=== PATIENT | male | born 1940 | race Caucasian/White ===

== ENCOUNTER → 2019-06-28 10:00 | Outpatient (REF) | payer MEDICARE, SELFPAY | LOC: ANHLAB 10:00 | PROVIDERS: PCP Family Medicine; Visit Provider Nurse Practitioner Family | DX: C44.529 Squamous cell carcinoma of skin of other part of trunk (principal) | CPT/HCPCS: 88305; 88331 ==

== ENCOUNTER 2019-06-29 11:08 | Outpatient (CLI) | payer MEDICARE, SELFPAY ==
--- NOTE | ~2019-06-29 | XR_ITS ---
EXAMINATION: XR chest 2V EXAM DATE: 06/29/2019 11:34 INDICATION: Shortness of breath, COPD. TECHNIQUE: Frontal and lateral projections of the chest obtained and reviewed. Comparison is made to prior examination from 01/20/2019. FINDINGS: The lungs are clear. There are no pleural effusions. The cardiomediastinal silhouette is within normal limits. There is no pneumothorax suspected. Patient has diffuse idiopathic skeletal h yperostosis (DISH). Spine stimulator leads at mid thoracic level. Left clavicular hardware. IMPRESSION: No acute cardiopulmonary findings. Reviewed, dictated and finalized at location B. APEUTIC RECREATION ASSISTANT
== END 2019-06-29 11:09 | disposition home or self-care (01) ==
PROVIDERS: PCP Family Medicine; Visit Provider Family Medicine
DX: R06.02 Shortness of breath (principal); J44.1 Chronic obstructive pulmonary disease with (acute) exacerbation
CPT/HCPCS: 71046

== ENCOUNTER 2019-10-24 12:31 | Outpatient (CLI) | payer MEDICARE, SELFPAY ==
--- NOTE | ~2019-10-24 | US_ITS ---
EXAMINATION: US soft tissue UE LT DATE: 10/24/2019 13:08 INDICATION: Left supraclavicular lump. TECHNIQUE: Multiple grayscale and Doppler ultrasound images of the left supraclavicular region were o btained. COMPARISON: Chest CT 08/17/2016 FINDINGS: In the left supraclavicular region, there is an ill-defined 21 x 9 mm hypoechoic subcutaneo us mass. IMPRESSION: 1. Ill-defined subcutaneous mass in the left supraclavicular region, most likely inflammation. Clinic al follow-up is recommended to confirm resolution and exclude malignancy. If the finding does not imp rove, biopsy is recommended. Reviewed, dictated and finalized at location A. IMPRESSION: 1. Ill-defined subcutaneous mass in the left supraclavicular region, most likel y inflammation. Clinical follow-up is recommended to confirm resolution and exc lude malignancy. If the finding does not improve, biopsy is recommended.
== END 2019-10-24 12:32 | disposition home or self-care (01) ==
PROVIDERS: PCP Family Medicine; Visit Provider Nurse Practitioner Family
DX: R22.32 Localized swelling, mass and lump, left upper limb (principal)
CPT/HCPCS: 76882

== ENCOUNTER 2019-11-03 07:52 | Outpatient (CLI) | payer MEDICARE, SELFPAY ==
--- NOTE | ~2019-11-03 | CT_ITS ---
EXAMINATION: CTA UE RT DATE: 11/03/2019 09:25 INDICATION: Right shoulder pain. TECHNIQUE: Computed tomographic angiography (CTA) of the upper chest and right upper extremity was pe rformed with 100 mL Omnipaque 350 intravenous contrast. Automated exposure control and iterative reed nstruction technique were employed. The dose-length product was 863 mGy-cm. COMPARISON: None. FINDINGS: The visualized thoracic aorta is normal in caliber with no dissection. Minimal calcified atherosclero tic plaque without hemodynamically significant stenosis at the aortic arch, at the origin of the left carotid artery and along the innominate artery. There is an early bifurcation of the right brachial artery at the mid humerus. There is runoff into the hand along both the right radial and ulnar arteri es with no evident atherosclerosis or stenosis in the right brachial, radial or ulnar arteries. There is runoff to near the wrist along the significantly smaller caliber anterior interosseous artery at the right forearm. The posterior interosseous artery is even more diminutive and is unable to be foll owed beyond the level of the proximal forearm. Visualized bilateral upper lung zones are clear. No pa thologically enlarged upper thoracic or axillary lymphadenopathy. Severe cervical spondylosis with an terior fusion at C4-C5. Mucosal thickening the left maxillary sinus. Postoperative change of prior ri ght ethmoidectomy. Changes of bilateral intraocular lens replacement. Small right mastoid effusion. P ostoperative changes at the right shoulder including distal right clavicle resection and acromioplast y. Mild glenohumeral osteoarthritis. IMPRESSION: 1. No hemodynamically significant stenosis along the right brachial, radial or ulnar arteries. 2. Severe cervical spondylosis. Reviewed, dictated and finalized at location A.
[2019-11-03 08:52] LABS: Estimated Glomerular Filt Rate 33
== END 2019-11-03 07:53 | disposition home or self-care (01) ==
LOC: ANHIMG 07:53
PROVIDERS: PCP Family Medicine; Visit Provider Orthopaedic Surgery
DX: M25.519 Pain in unspecified shoulder (principal); M47.812 Spondylosis without myelopathy or radiculopathy, cervical region
CPT/HCPCS: 36415; 73206; Q9967

== ENCOUNTER 2019-11-10 00:27 | Outpatient (CLI) | payer MEDICARE, SELFPAY ==
[2019-11-10 17:48] LABS: SARS-CoV-2 RNA PCR Negative
== END 2019-11-10 00:28 | disposition home or self-care (01) ==
LOC: ANHCOVIDDT 00:28
PROVIDERS: PCP Family Medicine; Visit Provider Surgery
DX: Z01.812 Encounter for preprocedural laboratory examination (principal); Z20.828 Contact with and (suspected) exposure to other viral communicable diseases
CPT/HCPCS: 87635; C9803; U0003

== ENCOUNTER 2019-11-10 09:15 | Outpatient (CLI) | payer MEDICARE, SELFPAY ==
[2019-11-10 10:11] LABS: INR 2.1
[2019-11-10 10:12] LABS: Partial Thromboplastin Time 31.4 SECONDS (22.3-36.8)
[2019-11-10 10:24] LABS: Blood Urea Nitrogen 63 mg/dL (9-20); Calcium 9.8 mg/dL (8.4-10.2); Carbon Dioxide 25 mmol/L (22-30); Chloride 101 mmol/L (98-107); Estimated Glomerular Filt Rate 29; Glucose 151 mg/dL (75-110); Sodium 133 mmol/L (137-145)
== END 2019-11-10 09:16 | disposition home or self-care (01) ==
LOC: ANHSURGERY 09:17
PROVIDERS: Anesthesiology; PCP Family Medicine; Visit Provider Surgery
DX: E13.9 Other specified diabetes mellitus without complications (principal); N28.9 Disorder of kidney and ureter, unspecified
CPT/HCPCS: 36415; 80048; 85610; 85730; 87635; C9803; U0003

== ENCOUNTER 2019-11-13 00:16 | Day surgery (SDC) | payer MEDICARE, SELFPAY ==
[2019-11-07 13:32] VITALS: BMI 32.3
[2019-11-13] MEDS: SODIUM CHLORIDE 0.9% IV 500 ML 30 ML IV CONT (10:45)
[2019-11-13 10:55] VITALS: BP 152/76; PULSE 82; RESP 20; TEMP 37.3; O2SAT 98
--- NOTE | 2019-11-13 11:02 | WPDANESEPPF ---
Anes - Initial Pre Proc Eval Procedure: Operation Date: 11/13/19 12:00 Proposed Procedures p Excision Of Left Shoulder Mass - Rusty Ly MD Date/Time: 11/13/19 11:02 Surgeon: Rusty Ly MD Pre Op Diagnosis: left shoulder mass Patient Data Age: 79 Gender: M Height: 1.85 m Weight: 110 kg Last Vital Signs Temp 37.3 C 11/13/19 10:55 Pulse 82 11/13/19 10:55 Resp 20 11/13/19 10:55 BP 152/76 H 11/13/19 10:55 Pulse Ox 98 11/13/19 10:55 Allergies Allergy/AdvReac Type Severity Reaction Status Date / Time irbesartan Allergy Unknown upset Verified 11/07/19 12:58 stomach Home Medications Medication Instructions Recorded Confirmed Type icosapent ethyl 1 gram capsule 2 gm PO BID 04/10/19 11/07/19 History multivitamin 1 tablet PO DAILY 04/10/19 11/07/19 History nebulizer and compressor #1 each 04/10/19 10/30/19 History omeprazole 40 mg capsule,delayed 40 mg PO DAILY 04/10/19 11/07/19 History release tadalafil 5 mg tablet 5 mg PO DAILY 04/10/19 11/07/19 History vitamin B complex 1 tablet PO DAILY 04/10/19 11/07/19 History lisinopril 10 mg tablet 10 mg PO DAILY 05/08/19 11/07/19 History metolazone 2.5 mg tablet 2.5 mg PO DAILY 05/08/19 11/07/19 History prednisone 10 mg tablet 10 mg PO DAILY 05/08/19 11/07/19 History Bacillus coagulans 10 billion cell 1 cell PO BID cap 06/28/19 11/07/19 History capsule,delayed release allopurinol 100 mg tablet 100 mg PO DAILY tablet 06/28/19 11/07/19 History bumetanide 2 mg tablet 0.5 mg PO DAILY tablet 06/28/19 11/07/19 History carvedilol 6.25 mg tablet 6.25 mg PO BID tablet 06/28/19 11/13/19 History cetirizine 10 mg tablet 5 mg PO BID PRN tablet 06/28/19 11/07/19 History chondroitin sulfate A sodium 400 400 mg PO BID cap 06/28/19 11/07/19 History mg capsule coenzyme Q10 150 mg capsule 100 mg PO DAILY cap 06/28/19 11/07/19 History duloxetine 30 mg capsule,delayed 30 mg PO DAILY 06/28/19 11/07/19 History release fluticasone fur. 100 mcg-umeclid 1 inhalation INHALATION DAILY 06/28/19 11/07/19 History 62.5 mcg-vilant 25 mcg inhalat.powder fluticasone propionate 50 2 spray NASAL DAILY ml 06/28/19 11/07/19 History mcg/actuation nasal spray,suspension insulin glargine U-300 conc 300 26 unit SUB-Q DAILY ml 06/28/19 11/07/19 History unit/mL (3 mL) subcutaneous pen insulin lispro 100 unit/mL 18 unit SUB-Q QID ml 06/28/19 11/07/19 History subcutaneous pen melatonin 5 mg tablet 5 mg PO DAILY tablet 06/28/19 11/07/19 History mycophenolate sodium 360 mg 360 mg PO DAILY tablet 06/28/19 11/13/19 History tablet,delayed release tacrolimus 1 mg capsule 2.5 mg PO Q12H cap 06/28/19 11/07/19 History tamsulosin 0.4 mg capsule 0.4 mg PO DAILY 06/28/19 11/07/19 History ipratropium 0.5 mg-albuterol 3 mg 3 ml INHALATION Q4H PRN #90 ml 06/29/19 11/07/19 Rx (2.5 mg base)/3 mL nebulization soln levothyroxine 112 mcg tablet 112 mcg PO DAILY #90 tablet 10/20/19 11/13/19 Rx rivaroxaban 20 mg tablet 20 mg PO DAILY #90 tablet 10/20/19 11/07/19 Rx tramadol 50 mg tablet 50 mg PO Q6H PRN #30 tablet 10/30/19 11/07/19 Rx Patient hx anesthesia problems: none Family hx anesthesia problems: none [facility] Past Medical History Medical History (Updated 11/13/19 @ 11:01 by Krish Her DO) Biventricular heart failure Chronic obstructive pulmonary disease, unspecified DVT (deep venous thrombosis) Hypothyroidism, unspecified Left ventricular failure, unspecified Long-term use of immunosuppressant medication KAREN (obstructive sleep apnea) Other nursing home (current) drug therapy Other malaise Polycystic kidney disease Renovascular hypertension Rotator cuff arthropathy of right shoulder Secondary diabetes Surgical History Surgical History H/O bone graft H/O knee surgery History of hip replacement Kidney transplant status Status post surgical removal of malignant neopla
--- NOTE | 2019-11-13 12:01 | WPDHPUPDATE1 ---
History and Physical Update Update Date/Time: 11/13/19 12:01 History and Physical has been reviewed, including an updated exam of the patient. There are NO changes in the patient's condition. Risks, benefits, and alternatives have been discussed and questions answered. Patient agrees to proceed with procedure.
[2019-11-13] MEDS: ceFAZolin 2 GM/D5W 50 ML 2 GM/50 ML BAG IVPB (12:10)
[2019-11-13] MEDS: BUPIVACAINE/EPINEPHRINE 0.5% 30 ML VIAL INFILTRATE (12:10)
[2019-11-13 13:27] VITALS: BP 146/70; PULSE 77; RESP 12; O2SAT 96
--- NOTE | 2019-11-13 13:37 | P.OP_ITS ---
Procedure Note - Detailed Date of procedure: 11/13/19 Pre-op diagnosis: left shoulder mass Post-op diagnosis: same (Suspected epidermal cyst) Procedure performed: Excision of skin lesion dorsum left anterior shoulder Description of procedure: The patient was placed in the supine position. He was tilted slightly away from the rod mill operator. After a surgical time out confirming patient and procedure the patient was prepped and draped in the usual sterile fashion. Local anesthetic was administered subcutaneously. We used 0.5% Marcaine with epinephrine The lesion measured 5.4 x 2.4 cm. An elliptical incision was made around the lesion taking a thin margin circumferentially. I dissected down to the deep subcutaneous tissues and then completely excised the lesion. Bleeding was controlled with electrocautery. Because there appeared to be some tension on the central portion of the wound the flaps were undermined slightly for about 1 cm underneath each flap of skin posterior and anterior. The wound was closed in two layers. An un-dyed 2-0 Vicryl deep dermal and then interrupted vertical mattress and simple sutures of 3 0 nylon were used as closure. Patient tolerated this well. Estimated blood loss approximately 5 cc Anesthesia: other (G IV S via LMA) Surgeon: Rusty Ly MD Percussion Welding Machine Operator: Renuka Cano RN, HAIR DESIGNER Estimated blood loss (mL): 5 Drains: No Packing: No Pathology: yes (Ellipse of skin with apparent cysts) Complications: No immediate complications Condition: stable Disposition: same day Findings: We did not enter any cysts we did not run into any infection that we could tell.
[2019-11-13 13:40] VITALS: BP 160/76; PULSE 72; RESP 14; O2SAT 97
[2019-11-13 14:10] VITALS: BP 137/67; PULSE 70; RESP 14
--- NOTE | 2019-11-13 14:16 | SUR.PHASEII ---
UPDATED BY THIS RN AND BY SURGEON.
--- NOTE | 2019-11-13 14:31 | SUR.PHASEII ---
PT ASSISTED WITH GETTING DRESSED. CALLED TO PICK PT UP.
[2019-11-13 15:43] LABS: Glucose Point of Care 149 (65-105)
== END 2019-11-13 15:05 | disposition home or self-care (01) ==
PROVIDERS: PCP Family Medicine; Visit Provider Surgery
PROC: (CPT 11606; principal; 2019-11-13 12:00)
DX: C76.42 Malignant neoplasm of left upper limb (principal); E03.9 Hypothyroidism, unspecified; I50.814 Right heart failure due to left heart failure; G47.33 Obstructive sleep apnea (adult) (pediatric); Q61.3 Polycystic kidney, unspecified; I15.0 Renovascular hypertension; E13.9 Other specified diabetes mellitus without complications; J44.9 Chronic obstructive pulmonary disease, unspecified; Z79.01 Long term (current) use of anticoagulants; Z79.4 Long term (current) use of insulin; Z87.891 Personal history of nicotine dependence; E66.9 Obesity, unspecified; Z68.32 Body mass index [BMI] 32.0-32.9, adult
CPT/HCPCS: 11606; 12032; 36415; 80048; 85610; 85730; 87635; 88304; 88305; 88342; C9803; J0690; J2704; J3010; J7040; J7120; U0003

== ENCOUNTER 2019-11-27 11:10 | Outpatient (CLI) | payer MEDICARE, SELFPAY ==
--- NOTE | ~2019-11-27 | CT_ITS ---
EXAMINATION: CT shoulder RT w con DATE: 11/27/2019 12:29 INDICATION: Right shoulder pain TECHNIQUE: High resolution computed tomography (CT) arthrogram of the right shoulder was performed fo llowing administration of intra-articular contrast but without intravenous contrast. Details of the j oint injection have been dictated separately. Additional sagittal and coronal reconstructions were pe rformed. Automated exposure control and iterative reconstruction technique were employed. The dose-le ngth product was 581.92 mGy-cm. COMPARISON: Shoulder radiographs dated 10/30/2019 and fluoroscopic images from the right glenohumeral j oint injection dated 11/27/2019 FINDINGS: Bone alignment is normal. No fracture. There are suture anchors at the superior facet of the right gr eater tuberosity consistent with prior rotator cuff repair. There is attenuation of both the supraspi natus and infraspinatus tendons. There is a full-thickness tear involving the posterior supraspinatus and anterior infraspinatus tendons. The tear defect measures up to ostomy 2.2 cm AP at the level of the apex of the humeral head and 3.2 cm medial to lateral. There is an additional smaller full-thickn ess tear at the distal aspect of the posterior most infraspinatus tendon measuring 2.3 cm medial marcos ateral and approximately 5 mm in maximal craniocaudal width. This is a tear through which the contras t can be first seen extravasating into the subdeltoid bursa at the time of the joint injection. The t eres minor tendon appears intact. There is imbibition of a small amount of contrast in the distal 2.5 cm of the cephalad third of the subscapularis tendon consistent with likely articular sided fraying and longitudinal split tearing. Tiny suture anchors at the cephalad aspect of the lesser tuberosity s uggests prior scapular tendon repair and there is no clearly defined measurable contrast filled tear defect to suggest a significant recurrent tear. No asymmetric muscular atrophy of the shoulder girdle or more specifically of the rotator cuff. Degeneration of the cephalad half of the glenoid labrum with essentially no residual labral tissue at the superior glenoid. There is nonuniform partial thickness cartilage loss involving greater than 50 % of the cartilage thickness at the cephalad half of the glenoid. Small marginal osteophytes along mu ch of the periphery of the glenoid. There is chondral surface irregularity throughout much of the hum eral head with more severe region of deep chondral ulceration at the slightly anteromedial from the a pex of the humeral head. The intra-articular long head biceps tendon is not visualized at its normal attachment of the biceps labral complex and there appear to be suture anchors along the cephalad aspe ct of the intertubercular groove consistent with prior tenodesis. Mild emphysema and mild atelectasis /scarring in the visualized portion of the right lung. IMPRESSION: 1. Postoperative changes of prior subscapularis and supraspinatus tendon repairs with recurrent full- thickness tear of the posterior supraspinatus and anterior infraspinatus tendon as well as small sepa rate tear at the inferior infraspinatus tendon. 2. Mild to moderate glenohumeral osteoarthritis with diffuse labral degeneration. 3. Postoperative change of prior bicipital tenodesis. Reviewed, dictated and finalized at location A. IMPRESSION: 1. Postoperative changes of prior subscapularis and supraspinatus tendon repair s with recurrent full-thickness tear of the posterior supraspinatus and anterio r infraspinatus tendon as well as small separate tear at the inferior infraspin atus tendon. 2. Mild to moderate glenohumeral osteoarthritis with diffuse labral degeneratio n. 3. Postoperative change of prior bicipital tenodesis
--- NOTE | ~2019-11-27 | XR_ITS ---
EXAMINATION: XR fl inj shoulder RT - MR/CT DATE: 11/27/2019 12:30 INDICATION: Right rotator cuff cuff tear post prior repair. TECHNIQUE: A time-out was performed to verify the patient's name, date of , and procedure to b e performed. The procedure including the risks, benefits, and alternatives was discussed with the pat ient. Risks discussed included bleeding and infection. The patient understood the risks and agreed to proceed. The skin overlying the rotator cuff interval the right glenohumeral joint was prepped and draped in usual sterile fashion. Anesthetic was administered with 1% lidocaine subcutaneously. A 22 G needle was advanced under fluoroscopic guidance into the joint. 12 mL of a 7:3:10 mixture of Omnip aque 240: 1% lidocaine: Sterile saline was injected with intra-articular administration confirmed wit h intermittent fluoroscopy. The needle was removed and the entry site was cleaned and dressed. There were no immediate complications. Fluoroscopy exposure time was 0.3 minutes. The total number of image s was 224. FINDINGS: Real-time fluoroscopy demonstrates the needle in the right glenohumeral joint. Contrast was seen extending through a full-thickness rotator cuff tear into the subacromial/subdeltoid bursa. IMPRESSION: 1. Right glenohumeral joint injection of iodinated contrast for subsequent CT arthrogram which will b e dictated separately. 2. Full-thickness rotator cuff tear with contrast extending into the subacromial/subdeltoid bursa. Se e CT arthrogram report for further detail. Reviewed, dictated and finalized at location A. IMPRESSION: 1. Right glenohumeral joint injection of iodinated contrast for subsequent CT a rthrogram which will be dictated separately. 2. Full-thickness rotator cuff tear with contrast extending into the subacromia l/subdeltoid bursa. See CT arthrogram report for further detail.
== END 2019-11-27 11:11 | disposition home or self-care (01) ==
PROVIDERS: PCP Family Medicine; Visit Provider Orthopaedic Surgery
DX: M75.101 Unspecified rotator cuff tear or rupture of right shoulder, not specified as traumatic (principal); M19.011 Primary osteoarthritis, right shoulder; M75.21 Bicipital tendinitis, right shoulder
CPT/HCPCS: 23350; 73201; 77002; Q9966